=== PATIENT | female | born 1970 | race Caucasian/White ===

== ENCOUNTER 2018-12-30 08:08 | Day surgery (SDC) | payer OTHER, MEDICAID ==
[2018-11-08 17:29] LABS: ADD MAN DIFF? NO
[2018-11-08 17:30] LABS: WHITE BLOOD COUNT 10.6 10^3/ul (4.8-10.8)
[2018-11-08 17:30] LABS: BASOPHIL # 0.1 10^3/ul (0.0-0.1); BASOPHILS % 0.8 % (0.0-2.0); EOSINOPHILS # 0.1 10^3/ul (0.0-0.5); LYMPHOCYTES # 2.8 10^3/ul (0.8-2.9); LYMPHOCYTES % 25.9 % (15.0-51.0); MEAN CORPUSCULAR HGB CONC 34.1 g/dl (32.0-37.0); MEAN CORPUSCULAR VOLUME 90.9 fl (82.0-101.0); MEAN PLATELET VOLUME 10.6 fl (7.4-10.4); MONOCYTE # 0.8 10^3/ul (0.3-0.9); MONOCYTES % 7.5 % (0.0-11.0); NEUTROPHIL # 6.8 10^3/ul (1.6-7.5); NEUTROPHILS % 64.4 % (39.0-77.0); PLATELET COUNT 382 10^3/UL (140-415); RED BLOOD COUNT 4.84 10^6/ul (4.20-5.40); RED CELL DISTRIBUTION WIDTH 12.3 % (11.5-14.5)
[2018-11-08 17:49] LABS: ALANINE AMINOTRANSFERASE 50 IU/L (13-69); ALBUMIN 4.8 g/dl (3.3-4.9); ALBUMIN/GLOBULIN RATIO 1.29; ALKALINE PHOSPHATASE 64 IU/L (42-121); ANION GAP 11 (5-13); ASPARTATE AMINO TRANSFERASE 45 IU/L (15-46); BILIRUBIN,INDIRECT 0.4 mg/dl (0-1.1); BILIRUBIN,TOTAL 0.4 mg/dl (0.2-1.3); BLOOD UREA NITROGEN 10 mg/dl (7-20); CARBON DIOXIDE 31 mmol/L (21-31); CHLORIDE 101 mmol/L (97-110); Estimated GFR > 60 mL/min (>60); GLUCOSE 91 mg/dl (70-220); POTASSIUM 3.9 mmol/L (3.5-5.1); SODIUM 143 mmol/L (135-144); TOTAL PROTEIN 8.5 g/dl (6.1-8.1)
[2018-11-08 17:50] LABS: INR 0.89; PROTIME 12.2 Sec (11.9-14.9)
[2018-11-08 17:51] LABS: PARTIAL THROMBOPLASTIN TIME 30.7 Sec (23.0-35.0)
[2018-12-30] MEDS: ACETAMINOPHEN 500 MG TAB PO (11:45)
[2018-12-30] MEDS: SOD CHLORIDE 0.9% 1,000 ML IV (11:46)
[2018-12-30] MEDS: CEFAZOLIN 2 GM/50 ML (PMX) 50 ML IVPB (13:00)
[2018-12-30] MEDS ORDERED: PROPOFOL 40 ML (13:56)
[2018-12-30] MEDS ORDERED: LIDOCAINE 2% (SDV) 5 ML INJ (13:56)
[2018-12-30] MEDS ORDERED: FENTAnyl 50 MCG/ML VIAL (13:57)
[2018-12-30] MEDS ORDERED: MIDAZOLAM 1 MG/ML 2 ML INJ (13:57)
[2018-12-30] MEDS ORDERED: FAMOTIDINE 20 MG INJ (13:57)
[2018-12-30] MEDS ORDERED: ONDANSETRON 4 MG INJ (13:57)
[2018-12-30] MEDS ORDERED: ISOSULFAN BLUE 1% 5 ML INJ SC (14:45)
[2018-12-30] MEDS ORDERED: morphine 2 MG INJ IV ×2 (15:00)
[2018-12-30] MEDS ORDERED: ALBUTEROL 0.083% (NEB) 2.5 MG/3 ML AMP HHN (15:00)
[2018-12-30] MEDS ORDERED: LABETALOL HCL 20MG INJ IV (15:00)
[2018-12-30] MEDS ORDERED: FENTAnyl 50 MCG/ML VIAL IV ×2 (15:00)
[2018-12-30] MEDS ORDERED: EPHEDrine 25 MG/5 ML SYG IV (15:00)
[2018-12-30] MEDS ORDERED: DIPHENHYDRAMINE 50 MG INJ IV (15:00)
[2018-12-30] MEDS ORDERED: OXYCODONE/ACETAMINOPHEN (5/325) TAB PO ×2 (15:00)
[2018-12-30] MEDS ORDERED: hydrALAzine 20 MG INJ IV (15:00)
[2018-12-30] MEDS ORDERED: HYDROmorphONE 1 MG/5 ML IV SYRINGE IV (15:00)
[2018-12-30] MEDS ORDERED: DEXAMETHASONE 4 MG/ML 5 ML INJ (15:26)
[2018-12-30] MEDS: MEPERIDINE 25 MG INJ IV (16:22)
[2018-12-30] MEDS: ONDANSETRON 4 MG INJ IV (16:22)
[2018-12-30] MEDS: HYDROmorphONE 1 MG/5 ML IV SYRINGE IV ×2 (16:36→16:41)
== END 2018-12-30 18:00 | disposition home or self-care (01) ==
LOC: SDS 08:08
DX: D05.11 Intraductal carcinoma in situ of right breast (principal)
CPT/HCPCS: 19125; 71045; 80053; 84703; 85025; 85610; 85730; 88307; 93005